=== PATIENT | male | born 1995 | race American Indian/Alaskan Native ===

== ENCOUNTER 2020-06-22 03:36 | Emergency (ER) | payer SELFPAY ==
[2020-06-22 04:30] VITALS: BP 118/68
[2020-06-22] MEDS ORDERED: LIDOCAINE (2%) 20 MG/1 ML VIAL 20 ML MDV INFILTRATI ONE (04:41)
[2020-06-22] MEDS ORDERED: KETOROLAC 30 MG/1 ML INJ IV ONE (04:41)
[2020-06-22] MEDS ORDERED: HYDROmorphone 1 MG/1 ML INJ IV ONE (04:41)
--- NOTE | 2020-06-22 04:54 | XRay Report ---
XR shoulder 2+V RT INDICATION: right shoulder pain. COMPARISON: None available. FINDINGS: There is an anterior dislocation in the right glenohumeral joint. Signer Name: Wei Shaffer MD Signed: 06/22/2020 4:49 AM Workstation Name: [id number]
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
== END 2020-06-22 05:40 | disposition home or self-care (01) ==
LOC: ED 03:36
DX: S43.004A Unspecified dislocation of right shoulder joint, initial encounter (principal); F12.90 Cannabis use, unspecified, uncomplicated; Z79.899 Other long term (current) drug therapy; X58.XXXA Exposure to other specified factors, initial encounter; Y93.89 Activity, other specified; Y92.89 Other specified places as the place of occurrence of the external cause; Y99.8 Other external cause status
CPT/HCPCS: 29105; 73030; 96374; 99283; J1170; J1885